=== PATIENT | female | born 1945 | race Caucasian/White ===

== ENCOUNTER 2016-08-20 14:55 | Emergency (ER) | payer OTHER ==
[2016-08-20 15:04] VITALS: RESP 14; O2SAT 96
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
[2016-08-20 15:58] VITALS: BP 133/82; PULSE 74; TEMP 98.2
== END 2016-08-20 15:58 | disposition home or self-care (01) ==
PROC: 0HQ0XZZ Repair Scalp Skin, External Approach (ICD-10-PCS; principal; 2016-08-20)
DX: S01.01XA Laceration without foreign body of scalp, initial encounter (principal); T81.33XA Disruption of traumatic injury wound repair, initial encounter; F17.200 Nicotine dependence, unspecified, uncomplicated; Z85.51 Personal history of malignant neoplasm of bladder; X58.XXXA Exposure to other specified factors, initial encounter; Y82.8 Other medical devices associated with adverse incidents